=== PATIENT | female | born 2000 | race African-American/Black ===

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

== ENCOUNTER 2018-05-28 10:01 | Emergency (ER) | payer OTHER ==
[~2018-05-28] VITALS: Ht 162.6 cm; Wt 65.8 kg
[~2018-05-28 10:01] MED LIST: OSEL75CA PO
[2018-05-28 10:47] VITALS: BP 113/59
[2018-05-28] MEDS ORDERED: ERYT1OIN6 OP (11:39)
--- NOTE | 2018-05-28 11:40 | PHYS DOC ---
Past Medical History Past Medical History: No Pertinent History Past Surgical History: No Surgical History Alcohol Use: None Drug Use: None Adult General Chief Complaint Chief Complaint: EYE PROBLEMS HPI HPI Patient is a 18 year old AA female who presents to the emergency department with complaints of a red tender bump on the medial aspect of her left lower eyelid for the last 4 days. She states this morning when she awoke there was a large amount of crusting in the corner of her eye. She denies any vision changes , injury, or contact use. Patient currently complains of her pain being a 7 out of 10 on the pain scale, she states that the pain increases when the area is touched, there are no alleviating factors. Review of Systems Review of Systems Constitutional: Denies fever or chills [] Eyes: Denies change in visual acuity, see hPI HENT: Denies nasal congestion or sore throat [] Respiratory: Denies cough or shortness of breath [] Integument: Denies rash, See HPI Allergies Allergies Allergies Coded Allergies Type Severity Reaction Last Updated Verified No Known Drug Allergies 04/22/17 No Physical Exam Physical Exam Constitutional: Well developed, well nourished, no acute distress, non-toxic appearance. [] HENT: Normocephalic, atraumatic, bilateral external ears normal, nose normal. [ ] Eyes: PERRLA, EOMI, conjunctiva injected left eye, stye present left lower eyelid, no discharge. [] Neck: Normal range of motion, no stridor. [] Lungs & Thorax: Respirations even and unlabored, no retractions, no respiratory distress Skin: Warm, dry, no rash. [] Neurologic: Alert and oriented X 3, no focal deficits noted. [] Psychologic: Affect normal, judgement normal, mood normal. [] Current Patient Data Vital Signs Vital Signs Date Time Temp Pulse Resp B/P (MAP) Pulse Ox O2 Delivery O2 Flow Rate FiO2 05/28/18 10:47 97.8 100 18 113/59 (77) 100 Room Air 97.8 EKG EKG [] Radiology/Procedures Radiology/Procedures [] Course & Med Decision Making Course & Med Decision Making Pertinent Labs and Imaging studies reviewed. (See chart for details) [] Dragon Disclaimer Dragon Disclaimer This electronic medical record was generated, in whole or in part, using a voice recognition dictation system. Departure Departure Impression: Primary Impression: Hordeolum externum left lower eyelid Additional Impression: Conjunctivitis Disposition: 01 HOME, SELF-CARE Condition: STABLE Referrals: NO PCP (PCP) Patient Instructions: Sty Additional Instructions: Fill the prescription(s) and use as directed. Apply warm, moist washcloths to eyes needed for comfort. Recommend use of baby shampoo to wash eyelids. Follow- up with her primary care doctor in 1-2 days. Return to the emergency room if your symptoms worsen. Scripts Erythromycin Base (Erythromycin) 1 Gm Oint...g. 0.5 INCH OP QID for 5 Days, #1 TUBE 0 Refills Prov: LOUANN KAPOOR APRN 05/28/18 Problem Qualifiers Additional Impression: Conjunctivitis Conjunctivitis type: acute Acute conjunctivitis type: unspecified Laterality: left Qualified Codes: H10.32 - Unspecified acute conjunctivitis, left eye LOUANN KAPOOR APRN May 28, 2018 11:40
== END 2018-05-28 11:52 | disposition home or self-care (01) ==
LOC: ER 10:01
DX: H00.015 Hordeolum externum left lower eyelid (principal); H10.32 Unspecified acute conjunctivitis, left eye
CPT/HCPCS: 99283

== ENCOUNTER 2019-04-16 21:52 | Emergency (ER) | payer OTHER, MEDICAID ==
[~2019-04-16] VITALS: Ht 160 cm; Wt 67.2 kg
[~2019-04-16 21:52] MED LIST changes: +ERYT1OIN6 OP
[2019-04-16 22:26] VITALS: BP 116/55
[2019-04-16] MEDS ORDERED: AMOX875T PO (23:00)
--- NOTE | 2019-04-16 23:00 | PHYS DOC ---
Past Medical History Past Medical History: No Pertinent History (MARCIA MENDOZA APRN) Past Surgical History: No Surgical History (MARCIA MENDOZA APRN) Smoking Status: Never Smoker Alcohol Use: None Drug Use: None (MARCIA MENDOZA APRN) Attending Signature I have participated in the care of this patient and I have reviewed and agree with all pertinent clinical information above including history, exam, and recommendations. (MONICA CROCKETT MD) Adult General Chief Complaint Chief Complaint: EARACHE/EAR PAIN HPI HPI Patient is a 19 year old female who presents to the ED today with 8 out of 10 bilateral ear pain described as throbbing and intermittent for the last 3 weeks. Patient denies striking anything specifically to relieve her pain. Denies any exacerbating or relieving factors. (MARCIA MENDOZA APRN) Review of Systems Review of Systems Constitutional: Denies fever or chills [] Eyes: Denies change in visual acuity, redness, or eye pain [] HENT: Reports bilateral ear pain. Denies nasal congestion or sore throat [] Respiratory: Denies cough or shortness of breath [] Cardiovascular: No additional information not addressed in HPI [] GI: Denies abdominal pain, nausea, vomiting, bloody stools or diarrhea [] : Denies dysuria or hematuria [] Musculoskeletal: Denies back pain or joint pain [] Integument: Denies rash or skin lesions [] Neurologic: Denies headache, focal weakness or sensory changes [] All other systems were reviewed and found to be within normal limits, except as documented in this note. (MARCIA MENDOZA APRN) Allergies Allergies Allergies Coded Allergies Type Severity Reaction Last Updated Verified No Known Drug Allergies 04/22/17 No (MONICA CROCKETT MD) Physical Exam Physical Exam Constitutional: Well developed, well nourished, no acute distress, non-toxic appearance. [] HENT: Normocephalic, atraumatic, bilateral external ears normal, oropharynx moist, no oral exudates, nose normal. [] Bilateral TM are mildly injected. Eyes: PERRLA, EOMI, conjunctiva normal, no discharge. [] Neck: Normal range of motion, no tenderness, supple, no stridor. [] Cardiovascular:Heart rate regular rhythm, no murmur [] Lungs & Thorax: Bilateral breath sounds clear to auscultation [] Abdomen: Bowel sounds normal, soft, no tenderness, no masses, no pulsatile masses. [] Skin: Warm, dry, no erythema, no rash. [] Back: No tenderness, no CVA tenderness. [] Extremities: No tenderness, no cyanosis, no clubbing, ROM intact, no edema. [] Neurologic: Alert and oriented X 3, normal motor function, normal sensory function, no focal deficits noted. [] Psychologic: Affect normal, judgement normal, mood normal. [] (MARCIA MENDOZA APRN) Current Patient Data Vital Signs Vital Signs Date Time Temp Pulse Resp B/P (MAP) Pulse Ox O2 Delivery O2 Flow Rate FiO2 04/16/19 22:26 98.6 77 16 116/55 (75) 98 Room Air 98.6 (MONICA CROCKETT MD) EKG EKG [] (MARCIA MENDOZA APRN) Radiology/Procedures Radiology/Procedures [] (MARCIA MENDOZA APRN) Course & Med Decision Making Course & Med Decision Making Pertinent Labs and Imaging studies reviewed. (See chart for details) This is a 19-year-old female patient with bilateral otitis media. Discharged with amoxicillin. Tylenol/Motrin for pain or fever. Follow-up with primary care doctor in 1-2 weeks. (MARCIA MENDOZA APRN) Dragon Disclaimer Dragon Disclaimer This electronic medical record was generated, in whole or in part, using a voice recognition dictation system. (MARCIA MENDOZA APRN) Departure Departure Impression: Primary Impression: Otitis media Disposition: HOME, SELF-CARE Condition: STABLE Referrals: NO PCP (PCP) SANGITA POTTS MD follow up in 1-2 week Patient Instructions: Otitis Media, Adult Additional Instructions: You have bilateral ear infections. We put you on antibiotics, ensure you complete them. Take Tylenol or Motrin for pain or fever. Scripts Amoxicillin (AMOXICILLIN) 875 Mg Tablet 1 TAB PO BID, #20 TAB Prov: MARCIA MENDOZA APRN 04/16/19 Problem Qualifiers Primary Impression: Otitis media Otitis media type: other nonsuppurative Chronicity: acute Laterality: bilateral Recurrence: non-recurrent Qualified Codes: H65.193 - Other acute nonsuppurative otitis media, bilateral MARCIA MENDOZA APRN Apr 16, 2019 23:00 MONICA CROCKETT MD Apr 17, 2019 03:32
== END 2019-04-16 23:14 | disposition home or self-care (01) ==
LOC: ER 21:52
DX: H65.193 Other acute nonsuppurative otitis media, bilateral (principal)
CPT/HCPCS: 99283

== ENCOUNTER 2019-07-26 08:18 | Emergency (ER) | payer OTHER, MEDICAID ==
[~2019-07-26] VITALS: Ht 160 cm; Wt 63.6 kg
[~2019-07-26 08:18] MED LIST changes: +AMOX875T PO
[2019-07-26] MEDS ORDERED: PHYTONADIONE (VIT K1) IV 10 MG in IV DEXTROSE 5% 50 ML IV ONE (08:45)
[2019-07-26 10:16] VITALS: BP 127/79
--- NOTE | 2019-07-26 10:54 | RAD ---
AP chest. HISTORY: Cough AP view was taken of the chest. Lungs are clear. Heart is normal in size. There is no pleural effusion. IMPRESSION: 1. No acute chest disease. Electronically signed by: Aristeo Flores MD (07/26/2019 10:52 AM) [id number]
[2019-07-26] MEDS ORDERED: FLUT9.9S NS (11:07)
--- NOTE | 2019-07-26 11:09 | PHYS DOC ---
Past Medical History Past Medical History: No Pertinent History Past Surgical History: No Surgical History Smoking Status: Never Smoker Alcohol Use: None Drug Use: None General Adult EDM: Chief Complaint: COUGH HPI: HPI: 19 yo F who denies any significant PMH presents to the ED with complaints of a runny nose, productive cough and sore throat for the past 2 days. She was diagnosed with whooping cough approximately 5 years ago and is considered for pneumonia (was admitted to [facility]). States she works at [employer] - unsure if she has been exposed to COVID and is requesting a COVID test. No underlying lung disease, does not smoke tobacco. Tolerating food/drink. Review of systems: Denies associated fever, chills, chest pressure heaviness or tightness, dyspnea, hemoptysis, anosmia, nausea, vomiting, diarrhea, abdominal pain, anorexia, leg swelling, rash, headache, neck stiffness, earache, or neurologic deficits. Allergies: Allergies: Allergies Coded Allergies Type Severity Reaction Last Updated Verified No Known Drug Allergies 04/22/17 No Physical Exam: PE: Constitutional: Well developed, well nourished, no acute distress, non-toxic appearance. [] HENT: Normocephalic, atraumatic, bilateral external ears normal, oropharynx moist, no oral exudates, nose normal. [] Eyes: PERRLA, EOMI, conjunctiva normal, no discharge. [] Neck: Normal range of motion, no tenderness, supple, no stridor. [] Cardiovascular:Heart rate regular rhythm, no murmur [] Lungs & Thorax: Bilateral breath sounds clear to auscultation [] Abdomen: Bowel sounds normal, soft, no tenderness, no masses, no pulsatile masses. [] Skin: Warm, dry, no erythema, no rash. [] Back: No tenderness, no CVA tenderness. [] Extremities: No tenderness, no cyanosis, no clubbing, ROM intact, no edema. [] Neurologic: Alert and oriented X 3, normal motor function, normal sensory function, no focal deficits noted. [] Psychologic: Affect normal, judgement normal, mood normal. [] Current Patient Data: Labs: Laboratory Tests Test 07/26/19 10:11 POC Urine HCG, Qualitative Hcg negative (Negative) Vital Signs: Vital Signs Date Time Temp Pulse Resp B/P (MAP) Pulse Ox O2 Delivery O2 Flow Rate FiO2 07/26/19 10:16 98.5 78 16 127/79 (95) 98 Room Air 98.5 EKG: EKG: [] Radiology/Procedures: Radiology/Procedures: IMAGING REPORT Signed PATIENT: JUSTINO BOCANEGRA ACCOUNT: [id number] : 2000 LOCATION: ER AGE: 19 SEX: F EXAM STATUS: REG ER ORD. PHYSICIAN: MENDOZA SHAIKH DO REASON: cough.PREG TEST PROCEDURE: PORTABLE CHEST 1V AP chest. HISTORY: Cough AP view was taken of the chest. Lungs are clear. Heart is normal in size. There is no pleural effusion. IMPRESSION: 1. No acute chest disease. Electronically signed by: Alvarado Diamond MD (07/26/2019 10:52 AM) [id number] DICTATED and SIGNED BY: ALVARADO DIAMOND MD DATE: 07/26/19 1052 Impression: Impression: Concern for upper respiratory symptoms for the past 2 days, differential includes upper respiratory infection versus seasonal allergies with postnasal drip. Chest x-ray unremarkable. Patient afebrile, speaking in full sentences, saturating 98% on room air and is in no respiratory distress. Will refer to local health department for COVID testing (per hospital policy-not testing pts' who are not admitted). Patient with no active chest pain or dyspnea. Is PERC rule negative. Encouraged PMD establishment and urgent follow-up for re-evaluation. Strict ED return precautions given for chest pain, worsening fever or increased work of breathing. All ofpatient's questions were answered and she was stable at time of discharge. Course & Med Decision Making: Course & Med Decision Making Pertinent Labs and Imaging studies reviewed. (See chart for details) [] Dragon Disclaimer: Dragon Disclaimer: This electronic medical record was generated, in whole or in part, using a voice recognition dictation system. Departure Departure Impression: Primary Impression: Cough Disposition: 01 HOME, SELF-CARE Condition: STABLE Referrals: NO PCP (PCP) Patient Instructions: Cough, Adult, Upper Respiratory Infection, Adult Scripts Fluticasone Propionate (Flonase Allergy Relief) 9.9 Ml [place].susp 2 SPRAYS NS DAILY PRN for ALLERGIES for 5 Days, #1 BOTTLE Prov: MENDOZA SHAIKH DO 07/26/19 MENDOZA SHAIKH DO July 26, 2019 11:09
== END 2019-07-26 11:17 | disposition home or self-care (01) ==
LOC: ER 08:18
DX: J02.9 Acute pharyngitis, unspecified (principal); R09.89 Other specified symptoms and signs involving the circulatory and respiratory systems; R05 Cough
CPT/HCPCS: 71045; 81025; 99283

== ENCOUNTER 2019-10-05 17:47 | Emergency (ER) | payer OTHER, MEDICAID ==
[~2019-10-05] VITALS: Ht 160 cm; Wt 55.0 kg
[~2019-10-05 17:47] MED LIST changes: +FLUT9.9S NS
[2019-10-05] MEDS ORDERED: IV NORMAL SALINE 1000ML BAG 1,000 ML IV ONE (19:15)
[2019-10-05] MEDS ORDERED: ACETAMINOPHEN 500 MG TABLET PO ONE (19:15)
[2019-10-05] MEDS ORDERED: KETOROLAC 30 MG/ML VIAL. IV ONE (19:15)
[2019-10-05 19:50] LABS: BILIRUBIN,URINE NEGATIVE (NEG); CLARITY,URINE CLEAR; COLOR,URINE YELLOW; NITRITE,URINE NEGATIVE (NEG); PH,URINE 6.5 (<5.0-8.0); PROTEIN,URINE NEGATIVE (NEG-TRACE); UROBILINOGEN,URINE 0.2 mg/dL (0.2 mg/dL)
[2019-10-05 20:00] LABS: SQUAMOUS EPITHELIAL CELL,UR MOD /LPF
[2019-10-05 20:01] LABS: BACTERIA,URINE FEW /HPF (0-FEW); RBC,URINE 0 /HPF (0-2)
--- NOTE | 2019-10-05 20:31 | RAD ---
CHEST AP ONLY History: Reason: cough / Spl. Instructions: / History: Comparison: July 26, 2019 Findings: Low lung volumes. No consolidation or pleural effusion. Normal heart size. No pneumothorax. Impression: 1. Low lung volumes. Electronically signed by: Teo Daily DO (10/05/2019 8:28 PM) [facility] [place]
--- NOTE | 2019-10-05 20:43 | PHYS DOC ---
Past Medical History Past Medical History: No Pertinent History Past Surgical History: No Surgical History Smoking Status: Never Smoker Alcohol Use: None Drug Use: None General Adult EDM: Chief Complaint: FEVER HPI: HPI: Patient is a 19-year-old female who presents with a 2-day history of fever fatigue body aches and dry cough. No nausea or vomiting. She denies any anosmia or taste disturbance. She does not think anyone around her has been sick. She denies any hemoptysis. She does state that she has some chest pain. when she coughs. Patient also states she has had a lingering headache over the last few days. She denies any neck pain. [] Review of Systems: Review of Systems: Constitutional: Reports fever. [] Eyes: Denies change in visual acuity. [] HENT: Denies nasal congestion or sore throat. [] Respiratory: Per HPI Cardiovascular: Denies chest pain or edema. [] GI: Denies abdominal pain, nausea, vomiting, bloody stools or diarrhea. [] : Denies dysuria. [] Musculoskeletal: Denies back pain or joint pain. [] Integument: Denies rash. [] Neurologic: Denies headache, focal weakness or sensory changes. [] Endocrine: Denies polyuria or polydipsia. [] Lymphatic: Denies swollen glands. [] Psychiatric: Reports anxiety [] Heart Score: Risk Factors: Risk Factors: DM, Current or recent (<one month) smoker, HTN, HLP, family history of CAD, obesity. Risk Scores: Score 0 - 3: 2.5% MACE over next 6 weeks - Discharge Home Score 4 - 6: 20.3% MACE over next 6 weeks - Admit for Clinical Observation Score 7 - 10: 72.7% MACE over next 6 weeks - Early Invasive Strategies Current Medications: Current Medications Medications (Trade) Dose Ordered Sig/[facility] Start Time Stop Time Status Last Admin Dose Admin Acetaminophen (Tylenol) 1,000 mg 1X ONCE 10/05/19 19:15 10/05/19 19:16 DC 10/05/19 20:29 1,000 MG Ketorolac Tromethamine (Toradol 30mg Vial) 30 mg 1X ONCE 10/05/19 19:15 10/05/19 19:16 DC 10/05/19 20:30 30 MG Sodium Chloride 1,000 ml @ 1,000 mls/hr 1X ONCE 10/05/19 19:15 10/05/19 20:14 DC 10/05/19 20:33 1,000 MLS/HR Allergies: Allergies: Allergies Coded Allergies Type Severity Reaction Last Updated Verified No Known Drug Allergies 04/22/17 No Physical Exam: PE: Constitutional: Well developed, well nourished, no acute distress, appears acutely ill. [] HENT: Normocephalic, atraumatic, bilateral external ears normal, oropharynx moist, no oral exudates, nose normal. [] Eyes: PERRLA, EOMI, conjunctiva normal, no discharge. [] Neck: Normal range of motion, no tenderness, supple, no stridor. [] Cardiovascular:Heart rate regular rhythm, no murmur [] Lungs & Thorax: Bilateral breath sounds clear to auscultation [] Abdomen: Bowel sounds normal, soft, no tenderness, no masses, no pulsatile masses. [] Skin: Warm, dry, no erythema, no rash. [] Back: No tenderness, no CVA tenderness. [] Extremities: No tenderness, no cyanosis, no clubbing, ROM intact, no edema. [] Neurologic: Alert and oriented X 3, normal motor function, normal sensory function, no focal deficits noted. [] Psychologic: Affect normal, judgement normal, mood normal. [] Current Patient Data: Labs: Laboratory Tests Test 10/05/19 19:37 10/05/19 19:46 Urine Collection Type Unknown Urine Color Yellow Urine Clarity Clear Urine pH 6.5 (<5.0-8.0) Urine Specific [place] 1.025 (1.000-1.030) Urine Protein Negative mg/dL (NEG-TRACE) Urine Glucose (UA) Negative mg/dL (NEG) Urine Ketones (Stick) Negative mg/dL (NEG) Urine Blood Negative (NEG) Urine Nitrite Negative (NEG) Urine Bilirubin Negative (NEG) Urine Urobilinogen Dipstick 0.2 mg/dL (0.2 mg/dL) Urine Leukocyte Esterase Negative (NEG) Urine RBC 0 /HPF (0-2) Urine WBC 1-4 /HPF (0-4) Urine Squamous Epithelial Cells Mod /LPF Urine Bacteria Few /HPF (0-FEW) Urine Mucus Marked /LPF POC Urine HCG, Qualitative Hcg negative (Negative) EKG: EKG: [] Radiology/Procedures: Radiology/Procedures: []PROCEDURE: CHEST AP ONLY CHEST AP ONLY History: Reason: cough / Spl. Instructions: / History: Comparison: July 26, 2019 Findings: Low lung volumes. No consolidation or pleural effusion. Normal heart size. No pneumothorax. Impression: 1. Low lung volumes. Course & Med Decision Making: Course & Med Decision Making Pertinent Labs and Imaging studies reviewed. (See chart for details) [] Dragon Disclaimer: Dragon Disclaimer: This electronic medical record was generated, in whole or in part, using a voice recognition dictation system. Departure Departure Impression: Primary Impression: Suspected 2019 novel coronavirus infection Disposition: HOME, SELF-CARE Condition: STABLE Referrals: NO PCP (PCP) Patient Instructions: Viral Syndrome Additional Instructions: Thank you for visiting [facility]. We appreciate you trusting us with your care. If any additional problems come up don't hesitate to return to visit us. Please follow up with your primary care provider so they can plan additional care if needed and know about the problem that you had. If symptoms worsen come back to the Emergency Department. Any concerning symptoms that start such as chest pain, shortness of air, weakness or numbness on one side of the body, running high fevers or any other concerning symptoms return to the ER. You have a viral syndrome which may include symptoms like muscle aches, fevers, chills, runny nose, cough, sneezing, sore throat, vomiting, or diarrhea. One of the potential viruses that you may have is SARS-CoV-2, the virus that causes COV ID-19, also known as the Coronavirus. You are just as likely to have a different viral infection such as the common cold, flu, etc. Most patients with the Coronavirus have mild symptoms and recover on their own. Resting, staying hydrated, and sleep from known cases can be helpful. As of todays visit, you are well enough to go home and treat your symptoms with oral fluids and over the counter medications. Coronavirus testing is not performed on most people with mild symptoms who are being discharged from the emergency department. If Coronavirus testing was performed the results will not be available for possibly up to 2-3 days. If your result is positive you will be contacted. Please follow the following precautions at home: 1) Stay home except to get medical care. 2) As advised by the CDC we recommend you stay in your home and minimize contact with other people. We do not want you to spread the infection. 3) Those who are older or have significant medical issues may have more severe symptoms from this infection. We recommend self-isolation,FOR AT LEAST 7 DAYS after your 1st day of symptoms. AFTER you feel better please wait AT LEAST ANOTHER WEEK before returning to regular activities and being around other people! 4) IF you become sicker and have difficulty breathing, chest pain, unable to eat/drink, severe vomiting, diarrhea, or weakness you may need to return to the Emergency Department. 5) You should restrict activities outside your home, except for getting medical care. DO NOT go to work, school, or public areas. Avoid using public transportation, ride sharing, or taxis. 6) Separate yourself from other people in your home. You should use a separate bathroom if possible. 7) Avoid sharing personal household items such as dishes, cups, eating utensils, towels, etc. 8) Clean all high touch surfaces every day (door knobs, counter tops, etc). Use a household cleaning spray or wipe per label instructions. 9) Clean your hands often. Wash your hands with soap and water for at least 20 seconds. 10) Cover your mouth and nose with a tissue when you cough or sneeze. 11) Throw used tissues in a trash can and immediately wash your hands. For additional resources please visit the CDC website or the [place] Department of Health ([phone]). Justicifation of Admission Dx: Justifications for Admission: Justification of Admission Dx: No MILADIS RAMOS DO Oct 05, 2019 20:43
[2019-10-05 21:15] VITALS: BP 101/59
--- NOTE | 2019-10-07 09:20 | NUR ---
IP: Notified pt of + COVID results and need to self quarantine for 14 days. Pt verbalized understanding. All questions answered.
== END 2019-10-05 21:28 | disposition home or self-care (01) ==
LOC: ER 17:47
DX: U07.1 COVID-19 (principal); R50.9 Fever, unspecified; R53.83 Other fatigue; R05 Cough
CPT/HCPCS: 71045; 81001; 81025; 96374; 99285; C9803; J1885; J7030; U0003